=== PATIENT | female | born 1960 | race Caucasian/White ===

== ENCOUNTER → 2022-07-16 10:53 | Outpatient (BNV) | payer MEDICARE, MEDICAID, SELFPAY | PROVIDERS: PCP Family Medicine; Visit Provider Internal Medicine Medical Oncology | DX: I82.401 Acute embolism and thrombosis of unspecified deep veins of right lower extremity (principal) | CPT/HCPCS: 99204; 99213 ==

== ENCOUNTER 2022-07-26 22:33 | Emergency (ER) | payer MEDICARE, MEDICAID, SELFPAY ==
[2022-07-26 22:53] VITALS: BP 130/70; PULSE 68; RESP 16; TEMP 36.6; O2SAT 93; BMI 25.1
[2022-07-27 01:45] VITALS: BP 161/84; PULSE 82; RESP 16; TEMP 36.3; O2SAT 98
--- NOTE | 2022-07-27 01:54 | MHC.EDTECH ---
PATIENT BLOOD DRAWN AND SENT TO LAB ,VITALS SIGN RE CHECK .
[2022-07-27 01:55] LABS: MANUAL DIFF FLAG NO
[2022-07-27 02:00] LABS: Basophils Percent Auto 0.6 % (0-2); Eosinophils Percent Auto 0.4 % (0-4); Hematocrit 39.9 % (37.0-47.0); Hemoglobin 12.5 g/dl (12.0-16.0); Imm Gran Abs Auto 0.01 X10*3/uL (0.00-0.03); Imm Gran Pct Auto 0.2 % (0.0-0.4); Lymphocytes Absolute Auto 1.5 X10*3/uL (1.2-4.9); Lymphocytes Percent Auto 32.5 % (20-40); Mean Corpuscular HGB Conc 31.3 g/dl (31.0-35.0); Mean Corpuscular Hemoglobin 27.1 pg (27.0-33.0); Mean Corpuscular Volume 86.4 fL (80.0-98.0); Mean Platelet Volume 9.2 fL (9.4-12.3); Monocytes Absolute Auto 0.4 X10*3/uL (0.1-1.2); Monocytes Percent Auto 9.1 % (2-11); Neutrophils Absolute Auto 2.7 x10*3/uL (2.0-8.3); Neutrophils Percent Auto 57.2 % (45-73); Platelet Count 194 X10*3/uL (160-400); Red Blood Count 4.62 X10*6/uL (4.20-5.50); Red Cell Distribution Width 13.7 % (11.0-16.0); White Blood Count 4.7 X10*3/uL (4.8-10.8)
[2022-07-27 02:06] LABS: INTERNATIONAL NORM RATIO 1.1 (0.9-1.1)
[2022-07-27 02:10] LABS: D Dimer High Sensitivity < 150 NG/ML
[2022-07-27 02:13] LABS: Anion Gap 11 (12-20); Blood Urea Nitrogen 22 mg/dL (9-16); Calcium 9.7 mg/dL (8.4-10.2); Carbon Dioxide 32 mmol/L (22-29); Chloride 104 mmol/L (96-108); Creatinine Clr Calc Pharmacy 64.6; Estimated Glomerular Filt Rate > 60; Glucose Random 95 mg/dL (60-115); Potassium 4.8 mmol/L (3.3-5.1); Sodium 142 mmol/L (135-145)
[2022-07-27 03:28] VITALS: BP 133/65; PULSE 59; RESP 18; TEMP 36.8; O2SAT 97
--- NOTE | 2022-07-27 04:21 | ED_ITS ---
HPI - Extremity Problem General Chief complaint: Extremity Injury, Upper Stated complaint: left arm swollen Time Seen by Provider: 07/27/22 03:49 History of Present Illness HPI Narrative: Patient is a 61-year-old female with a history of having blood clots in the past currently on Eliquis. Presented today with worrying about a bump on her right antecubital area. Was worried about arm swelling to the right upper extremity. There is no chest pain or shortness of breath no diaphoresis. Related Data Home Medications Medication Instructions Recorded Confirmed methadone 10 mg tablet 10 mg PO DAILY 07/16/22 07/16/22 varenicline 0.5 mg (11)-1 mg (42) 0.5 ea PO DAILY 07/16/22 07/16/22 tablets in a dose pack Previous Rx's Medication Instructions Recorded apixaban 5 mg tablet (Eliquis) 5 mg PO BID #60 tabs 07/23/22 Allergies Allergy/AdvReac Type Severity Reaction Status Date / Time No Known Allergies Allergy Verified 07/16/22 11:13 Review of Systems Review of Systems: No fever no chills no chest pain or shortness of breath no nausea no vomiting. Question bump noted in the right antecubital fossa. There is no redness. No discharge. Yes all other systems are reviewed and are negative PMFSH Past Medical History Attestation statement: The following information was validated with the patient. Medical History DVT (deep venous thrombosis) Family History Family History Brother Pulmonary embolism Maternal Grandmother Pulmonary embolism Father Colon cancer Maternal Uncle Lung cancer Social History Social History Household Members: None Patient Tobacco Use Status: Current everyday Tobacco user Tobacco use type: Cigarette Advance Directives: No Advance Directives Information Provided: Yes service: No Current occupational status: disabled Physical Exam Vital Signs: Vital Signs: Last Vital Signs Temp 98.3 F 07/27/22 03:28 Pulse 59 07/27/22 03:28 Resp 18 07/27/22 03:28 BP 133/65 07/27/22 03:28 Pulse Ox 97 07/27/22 03:28 O2 Del Method Room Air 07/27/22 03:28 BMI result Body Mass Index 25.1 Appearance: Alert. Oriented X3. No acute distress. Eyes: Pupils equal, round and reactive to light. ENT: Pharynx normal. Neck: Normal inspection. Neck supple. No lymph nodes noted. No crepitus CVS: Normal heart rate and rhythm. Pulses normal. Normal S1 and S2 Respiratory: No respiratory distress. Breath sounds normal. No Wheezing. No rales Abdomen: Soft and nontender. No rigidity. No distention. good BS x4 Skin: Skin warm and dry. Normal skin color. Normal skin turgor. Extremities: No lower extremity edema. Neurovascular intact to all extremities. No Lacerations. No Rash. No swelling to the right upper extremity. Question lipoma noted at the antecubital fossa. More distally there is no swelling noted. Sensation over the median radial ulnar nerve intact motor over the median radial ulnar nerve intact capillary refill less than 2 seconds. Neuro: Oriented X 3. No motor deficit. No sensory deficit. Moving all extermities. No slurred speech Medical Decision Making Medical Decision Making MDM Narrative: Well-appearing no acute distress. Already on Eliquis patient has been mormon in taking her medications. Patient's D-dimer also negative. Unlikely to have a blood clot in this setting. Patient's upper extremity has no swelling at all. Has a bump at the antecubital fossa question lipoma is mobile. Patient is in no acute distress. Will have patient follow-up on an outpatient basis. In stable condition. Differential Diagnosis DVT, trauma, lipoma Admission/Observation Consideration of admission/observation: Escalation of care including admission/observation considered Well-appearing no evidence of DVT. Lab Data [facility] Lab Attestation statement: I reviewed the patient's lab results. 07/27/22 01:50 07/27/22 01:50 Labs: Lab Results 07/27/22 07/27/22 07/27/22 Range/Units 01:50 01:50 01:50 WBC 4.7 L (4.8-10.8) X10*3/uL RBC 4.62 (4.20-5.50) X10*6/uL Hgb 12.5 (12.0-16.0) g/dl Hct 39.9 (37.0-47.0) % MCV 86.4 (80.0-98.0) fL MCH 27.1 (27.0-33.0) pg MCHC 31.3 (31.0-35.0) g/dl RDW 13.7 (11.0-16.0) % Plt Count 194 (160-400) X10*3/uL MPV 9.2 L (9.4-12.3) fL Immature Gran % (Auto) 0.2 (0.0-0.4) % Neut % (Auto) 57.2 (45-73) % Lymph % (Auto) 32.5 (20-40) % [place] % (Auto) 9.1 (2-11) % Eos % (Auto) 0.4 (0-4) % Baso % (Auto) 0.6 (0-2) % Lymph # (Auto) 1.5 (1.2-4.9) X10*3/uL Fallon # (Auto) 0.4 (0.1-1.2) X10*3/uL Eos # (Auto) 0.0 (0.0-0.4) X10*3/uL Baso # (Auto) 0.0 (0.0-0.2) X10*3/uL Abs Immat Gran (auto) 0.01 (0.00-0.03) X10*3/uL Absolute Neuts (auto) 2.7 (2.0-8.3) x10*3/uL Absolute Nucleated RBC 0.000 (0.0-0.012) X10*3/uL Nucleated RBC % (auto) 0.0 (0.0-0.2) /100WBC PT 13.0 (10.0-13.1) SEC INR 1.1 (0.9-1.1) D-Dimer High Sensitivty < 150 NG/ML Sodium 142 (135-145) mmol/L Potassium 4.8 (3.3-5.1) mmol/L Chloride 104 (96-108) mmol/L Carbon Dioxide 32 H (22-29) mmol/L Anion Gap 11 L (12-20) BUN 22 H (9-16) mg/dL Creatinine 0.91 (0.5-1.4) mg/dL Estim Creat Clear Calc 64.6 Estimated GFR > 60 Random Glucose 95 (60-115) mg/dL Calcium 9.7 D (8.4-10.2) mg/dL Discharge Plan Discharge Clinical Impression: Arm swelling Patient Disposition: Home, Self-Care Instructions: Soft Tissue Mass (ED) Additional Instructions: Most likely do not have a blood clot. You on Eliquis already. Your blood work is not suggestive of a blood clot. Please follow-up with your doctor on an outpatient basis for further workup of the bones in your elbow Prescriptions: No Action methadone 10 mg Tablet 10 mg PO DAILY varenicline 0.5 mg (11)- 1 mg (42) Tablets,Dose Pack 0.5 ea PO DAILY Eliquis 5 mg Tablet 5 mg PO BID Qty: 60 4RF Referrals: Physician,Swetha J [Primary Care Provider] - 07/29/22
[2022-07-27 04:45] VITALS: BP 134/73; PULSE 70; RESP 12; O2SAT 96
== END 2022-07-27 04:47 | disposition home or self-care (01) ==
PROVIDERS: Emergency Provider Emergency Medicine Emergency Medical Services
DX: M79.89 Other specified soft tissue disorders (principal); Z86.718 Personal history of other venous thrombosis and embolism; F17.210 Nicotine dependence, cigarettes, uncomplicated; Z79.01 Long term (current) use of anticoagulants
CPT/HCPCS: 36415; 80048; 85025; 85379; 85610; 99283; 99284